=== PATIENT | female | born 1995 | race Caucasian/White ===

== ENCOUNTER 2017-06-29 11:05 | Emergency (ER) | payer OTHER ==
[2017-06-29 11:26] VITALS: BMI 42.2
--- NOTE | 2017-07-13 10:08 | OBPPN ---
Datetime: 07/02/2017 07:14 PP Pain Prov: Within normal limits PP Nausea Prov: Denies PP Flatus Prov: Yes PP Breasts Prov: Normal PP Heart Prov: Normal PP Lungs Prov: Normal PP Abdomen/Uterus Prov: Normal PP Lochia Prov: Normal PP Vulva/Perineum Prov: Normal PP CVA Tenderness Prov: Normal PP Extremities Prov: Normal PP Comments Phys Exam Prov: Abd: Soft, NT, BS- present UT- Firm Incision- clean and dry PP Impression Prov: Normal progression PP Plan Prov: Discharge PP Progress Note Prov: s/p Section, POD #3 Clinically Stable. Plan: Discharge. Vital Signs Provider PP: Reviewed
[2017-07-13 14:07] VITALS: BP 121/75; PULSE 69; RESP 18; TEMP 98.5; O2SAT 99
--- NOTE | 2017-07-15 03:47 | OBADHP ---
Datetime: 06/29/2017 19:44 Presentation-Admit: Vertex FHR - Baseline A Provider: 130 Gestation - Est Wks by US: 40.5 NICHD Variability Prov Fetus A: Moderate 6-25bpm NICHD Accel Fetus A IP Provider: 15X15 FHR Category Provider Fetus A: Category I NICHD Decel Fetus A IP Provider: Early Dilatation, Provider: 5-6 Effacement, Provider: 90 Station, Provider: -2 Datetime: 06/29/2017 14:33 Weight - Estimated: 3200 Vital Signs Provider: Reviewed; Within Normal Limits Datetime: 06/29/2017 11:48 Admit Comment, IP Provider: chief complaint-contractions HPI 22 y/o at 40.5 wga with c/o contractions.Patient denies vaginal bleeding or loss of fluid . course uncomplicated; care with dr kruse PMH denies PSH denies OBGYN H X Social hx denies tobacco,alcohol or illcit drug use Exam see exam section A/P 22 y/p at 40.5 wga in labor.BP elevated.?due to pain. -admit -see orders -[facility] labs -monitor closely dr kruse aware Pelvic Type - PN: Adequate Extremities - PN: Normal Abdomen - PN: Normal Back - PN: Normal Lungs - PN: Normal Heart - PN: Normal Neurologic - PN: Normal General - PN: Normal Contraction Comments Provider: every 2-3min IP Hx Assessment: The History has been Reviewed and is Current IP Chief Complaint: Uterine contractions Genitourinary Exam: Normal DTRs - PN: Normal EGA AdmitDate IP: 40.5 IP Adm Impression: Postterm, intrauterine IP Admit Plan: Admit to unit; Initiate labor protocol
== END 2017-06-30 01:31 | disposition home or self-care (01) ==
LOC: C.EROB 11:05
DX: O47.1 False labor at or after 37 completed weeks of gestation (principal); Z3A.40 40 weeks gestation of pregnancy

== ENCOUNTER 2017-06-29 11:05 | Inpatient (IN) | payer OTHER ==
[2017-06-29 11:26] VITALS: BMI 42.2
--- NOTE | 2017-06-29 11:58 | OBHP ---
Datetime: 06/29/2017 11:48 IP Adm Impression: Postterm, intrauterine IP Admit Plan: Admit to unit; Initiate labor protocol Admit Comment, IP Provider: chief complaint-contractions HPI 22 y/o at 40.5 wga with c/o contractions.Patient denies vaginal bleeding or loss of fluid . course uncomplicated; care with dr kruse PMH denies PSH denies OBGYN H X Social hx denies tobacco,alcohol or illcit drug use Exam see exam section A/P 22 y/p at 40.5 wga in labor.BP elevated.?due to pain. -admit -see orders -pih labs -monitor closely dr kruse aware Pelvic Type - PN: Adequate Extremities - PN: Normal Abdomen - PN: Normal Back - PN: Normal Lungs - PN: Normal Heart - PN: Normal Neurologic - PN: Normal General - PN: Normal Contraction Comments Provider: every 2-3min Gestation - Est Wks by US: 40.5 IP Hx Assessment: The History has been Reviewed and is Current EGA AdmitDate IP: 40.5 Vital Signs Provider: Reviewed IP Chief Complaint: Uterine contractions FHR Category Provider Fetus A: Category I Dilatation, Provider: 3-4 Effacement, Provider: 80 Station, Provider: -2 Genitourinary Exam: Normal DTRs - PN: Normal
[2017-06-29 12:01] LABS: BASO # 0.1 K/uL (0.0-0.2); BASO % 0.6 % (0.0-2.0); EOS # 0.1 K/uL (0.0-0.7); EOS % 1.1 % (0.0-4.0); LYMPH # 1.8 K/uL (1.0-4.3); LYMPH % 19.6 % (20.0-40.0); MEAN CELL VOLUME 71.3 fL (81.0-99.0); MEAN CORPUSCULAR HEMOGLOBIN 22.9 pg (27.0-31.0); MEAN CORPUSCULAR HGB CONC 32.1 g/dL (33.0-37.0); MONO # 0.7 K/uL (0.0-0.8); MONO % 7.8 % (0.0-10.0); NRBC % 0.1 % (0.0-2.0); RED CELL DISTRIBUTION WIDTH 14.2 % (11.5-14.5); WHITE BLOOD COUNT 9.3 K/uL (4.8-10.8)
[2017-06-29 12:09] LABS: RBC URINE 17 /hpf (0-3); URINE BACTERIA OCC (<OCC); URINE BILIRUBIN NEGATIVE (NEGATIVE); URINE BLOOD NEGATIVE (NEGATIVE); URINE COLOR Yellow (YELLOW); URINE GLUCOSE (UA) NORMAL (Normal); URINE KETONE NEGATIVE (NEGATIVE); URINE LEUKOCYTE ESTERASE 3+ Leu/uL (Negative); URINE PROTEIN NEGATIVE (NEGATIVE); URINE UROBILINOGEN NORMAL mg/dL (0.2-1.0); WBC URINE 55 /hpf (0-5)
[2017-06-29 12:21] LABS: CHLORIDE 105 mmol/L (98-107); SODIUM 137 mmol/L (132-148)
[2017-06-29 12:22] LABS: POTASSIUM 3.8 mmol/L (3.6-5.2)
[2017-06-29 12:24] LABS: ALB/GLOB RATIO 0.9 (1.0-2.1); ALKALINE PHOSPHATASE 149 U/L (38-126); ALT/SGPT 19 U/L (9-52); AST/SGOT 17 U/L (14-36); BILIRUBIN,TOTAL 0.4 mg/dL (0.2-1.3); BLOOD UREA NITROGEN 6 mg/dL (7-17); CARBON DIOXIDE 19 mmol/L (22-30); GFR AFRICAN-AMERICAN > 60; GLUCOSE,RANDOM 89 mg/dL (65-105); TOTAL PROTEIN 6.9 g/dL (6.3-8.3); URIC ACID 4.9 mg/dL (2.2-7.5)
[2017-06-29 12:25] LABS: CALCIUM 9.5 mg/dl (8.6-10.4)
[2017-06-29] MEDS ORDERED: Bupivacaine 0.125%/FentaNYL 200 ML EPI ONE (13:55)
--- NOTE | 2017-06-29 14:36 | OBPN ---
Datetime: 06/29/2017 14:33 IP Progress Impression: Normal progression of labor; Reassuring heart rate IP Procedures: Artificial ROM IP Progress Plan: Continue present management Weight - Estimated: 3200 Presentation-Admit: Vertex IP Progress Note Comment: S-patient comfortable with epidural O-VS BP labile FHT cat1 [place] ctx q 2min sve /-1 A/P Patient at 40.5 wga in labor,GBS neg.arom done.clear fluid.Monitor bp closely -anticipate nvd discussed with dr kruse Vital Signs Provider: Reviewed; Within Normal Limits Dilatation, Provider: 5 Effacement, Provider: 90 Station, Provider: -2 Datetime: 06/29/2017 11:48 Contraction Comments Provider: every 2-3min Gestation - Est Wks by US: 40.5 FHR Category Provider Fetus A: Category I
[2017-06-29] MEDS ORDERED: Oxytocin 30 UNIT 30 UNITS/500 ML BAG IV PRN ×2 (16:00→16:45)
[2017-06-29] MEDS ORDERED: Oxytocin 30 UNIT 30 UNITS/500 ML BAG IV ONE (16:38)
[2017-06-29] MEDS ORDERED: Sodium Citrate/Citric Acid 15 ml Sol ONE ×2 (19:19)
[2017-06-29] MEDS ORDERED: cefOXitin IV 2 gm in Dextrose 2 GM/50 ML BAG IVPB ONE ×2 (19:19→19:53)
[2017-06-29] MEDS ORDERED: Lidocaine 2% MPF (5 ml) Inj ONE ×2 (19:20→21:00)
[2017-06-29] MEDS ORDERED: ePHEDrine 50 mg/ml Inj ONE (19:21)
--- NOTE | 2017-06-29 19:52 | OBPN ---
Datetime: 06/29/2017 19:44 IP Progress Impression: Arrest of dilatation/descent; Reactive non-stress test IP Procedures: Sterile Vag Exam IP Progress Plan: Deliver- Section FHR - Baseline A Provider: 130 Gestation - Est Wks by US: 40.5 Presentation-Admit: Vertex IP Progress Note Comment: IUP at term in labor. Arrest of cervical dilatation at 5-6cm Plan: Prepare for Section. The risks, alternatives ,and benefits discussed with the patient. Pt verbalizes understanding. Consent obtained. NICHD Accel Fetus A IP Provider: 15X15 FHR Category Provider Fetus A: Category I NICHD Variability Prov Fetus A: Moderate 6-25bpm Dilatation, Provider: 5-6 Effacement, Provider: 90 Station, Provider: -2 NICHD Decel Fetus A IP Provider: Early
[2017-06-29] MEDS ORDERED: Sodium Citrate/Citric Acid 15 ml Sol PO ONE (19:53)
[2017-06-29] MEDS ORDERED: Morphine 1 mg/ml preservative-free Inj(Duramorph) ONE (20:10)
--- NOTE | 2017-06-29 20:20 | PCM.SURG1 ---
Surgeon's Initial Post Op Note - Surgeon's Notes Surgeon: Dr Nichols Compliance Associate: Dr Lemons Type of Anesthesia: Spinal Anesthesia Administered By: Dr Lopez Pre-Operative Diagnosis: IUP at 40w5d in Active labor,. Arrest of cervical Dilatation Operative Findings: Live female infant with BW of 3195gm, score of 9 and 9 , Fundal placenta, Clear amniotic fluid. Normal uterus tubes and ovaries. IVF intake- 1500mls. EBL- 600mls. Urine output- 300mls Post-Operative Diagnosis: Same as Preop diagnosis Operation Performed: Primary Section Specimen/Specimens Removed: Umbilical cord blood Estimated Blood Loss: EBL {In ML}: 600 Post-Op Condition: Good Date of Surgery/Procedure: 06/29/17 Time of Surgery/Procedure: 21:35
[2017-06-29] MEDS ORDERED: Esmolol 100 mg/10ml Inj IV ONE ×2 (20:57→20:58)
[2017-06-29] MEDS ORDERED: Ketamine 50 mg/ml Inj (10 ml) ONE (21:13)
[2017-06-29] MEDS ORDERED: Midazolam 2 MG/2 ML VIAL ONE (21:13)
[2017-06-29] MEDS ORDERED: DiphenhydrAMINE 50 mg/ml Inj IVP PRN (22:14)
[2017-06-29] MEDS ORDERED: HYDROmorphone 0.5 mg/0.5 ml ISec IVP PRN (22:15)
[2017-06-30] MEDS: cefOXitin IV 2 gm in Dextrose 2 GM/50 ML BAG IVPB SCH ×2 (05:46→13:46)
[2017-06-30 07:39] LABS: BASO # 0.1 K/uL (0.0-0.2); BASO % 0.3 % (0.0-2.0); EOS % 0.1 % (0.0-4.0); HEMATOCRIT 31.4 % (34.0-47.0); LYMPH # 1.7 K/uL (1.0-4.3); LYMPH % 11.5 % (20.0-40.0); MEAN CELL VOLUME 71.1 fL (81.0-99.0); MEAN CORPUSCULAR HEMOGLOBIN 22.6 pg (27.0-31.0); MEAN CORPUSCULAR HGB CONC 31.7 g/dL (33.0-37.0); MEAN PLATELET VOLUME 9.9 fL (7.2-11.7); MONO # 0.7 K/uL (0.0-0.8); MONO % 4.6 % (0.0-10.0); RED CELL DISTRIBUTION WIDTH 14.1 % (11.5-14.5)
[2017-06-30 07:46] LABS: WHITE BLOOD COUNT 14.7 K/uL (4.8-10.8)
[2017-06-30] MEDS: Oxycodone/Acetaminophen 5/325 mg Tab PO PRN ×2 (10:48→22:40)
[2017-06-30] MEDS: Simethicone 80 mg Chewtab PO SCH ×3 (10:52→18:18)
[2017-07-01] MEDS ORDERED: cefOXitin IV 2 gm in Dextrose 2 GM/50 ML BAG IVPB ONE (00:32)
[2017-07-01] MEDS: cefOXitin IV 2 gm in Dextrose 2 GM/50 ML BAG IVPB SCH (00:34)
[2017-07-01] MEDS: Simethicone 80 mg Chewtab PO SCH ×4 (09:26→23:04)
[2017-07-01 16:46] VITALS: O2SAT 99
--- NOTE | 2017-07-01 18:09 | OBDS ---
DELIVERY PERSONNEL Delivery Doctor: Robert Nichols MD Scrub Nurse: Gail Choi OBT Water Ski Assembler: Patricia Aparicio RN Anesthesiologist: Delfino Loepz MD MATERNAL INFORMATION Delivery Anesthesia: Epidural Medications in Delivery: pitocin Estimated Blood Loss (ml): 600 Placenta Cultured: No Maternal Complications: None RN Comments: baby girl born via csection, apgars 9/9 baby stable and remains with mother. attended t o by Dr Quiñones. Provider Comments: Uncomplicated Primary Low Transverse Section with delivery of a viable f emale infant with scores of 9 and 9. LABOR SUMMARY EDC: 06/24/2017 00:00 No. Babies in Womb: 0 Labor Anesthesia: Epidural LABOR INFORMATION Group B Beta Strep: Negative (Annotations: 06/01/17) MEMBRANES Membranes Rupture Method: Artificial Rupture of Membranes: 06/29/2017 14:32 Length of Rupture (hrs): 6.85 Amniotic Fluid Color: Clear Amniotic Fluid Amount: Moderate Amniotic Fluid Odor: Normal STAGES OF LABOR Stage 3 hrs: 0 Stage 3 min: 1 CSECTION DELIVERY Primary Indication: Secondary Arrest of Dilatation CSection Incision: Lower Uterine Transverse Uterine Closure: Double-layer closure BABY A INFORMATION Infant Delivery Date/Time: 06/29/2017 21:23 Method of Delivery: Born in Route : No : N/A Forceps: N/A Vacuum Extraction: N/A Shoulder Dystocia : No SHOULDER DYSTOCIA BABY A Delivery Date/Time: 06/29/2017 21:23 PRESENTATION/POSITION BABY A Presentation: Cephalic Cephalic Presentation: Vertex Breech Presentation: N/A PLACENTA INFORMATION BABY A Placenta Delivery Time : 06/29/2017 21:24 Placenta Method of Delivery: Manual Removal Placenta Status: Delivered SCORES BABY A Heart Rate 1 min: >100 bpm Resp Effort 1 min: Good Cry Reflex Irritability 1 min: Cough or Sneeze or Pulls Away Muscle Tone 1 min: Active Motion Color 1 min: Body [place], Extremities Blue Resuscitation Effort 1 min: N/A SCORE 1 MIN: 9 Heart Rate 5 min: >100 bpm Resp Effort 5 min: Good Cry Reflex Irritability 5 min: Cough or Sneeze or Pulls Away Muscle Tone 5 min: Active Motion Color 5 min: Body [place], Extremities Blue Resuscitation Effort 5 min: N/A SCORE 5 MIN: 9 INFANT INFORMATION BABY A Gestational Age at Delivery: 40.5 Gestational Status: Term Outcome : Liveborn Condition : Stable Sex: Female IDENTIFICATION/MEDS BABY A ID Band Number: [id number] ID Band Location: Left Leg; Left Arm Sensor Applied: Yes Sensor Number: [id number] Sensor Location : Cord Clamp Vitamin K Given : Not Given Erythromycin Given: Not Given WEIGHT/LENGTH BABY A Infant Birthweight (gms): 3195 Infant Weight (lb): 7 Infant Weight (oz): 1 Length Inches: 19.50 Infant Length cms: 49.5 CORD INFORMATION BABY A No. Cord Vessels: 3 Nuchal Cord : N/A Nuchal Cord Other: 0 True Knot: 0 Cord Blood Taken: Yes Suction: Mouth; Nose ASSESSMENT BABY A Infant Complications: Multiple Variable Decels Physical Findings at Delivery: [place] Respirations: Appears Normal Sheet Metal Assembler And Riveter/ALS Called : Yes Infant Care By: Dr Quiñones Transferred To: Remains with Mother
--- NOTE | 2017-07-01 18:16 | OBPPN ---
Datetime: 07/01/2017 18:15 PP Pain Prov: Within normal limits PP Nausea Prov: Denies PP Flatus Prov: Yes PP Breasts Prov: Normal PP Heart Prov: Normal PP Lungs Prov: Normal PP Abdomen/Uterus Prov: Normal PP Lochia Prov: Normal PP Vulva/Perineum Prov: Normal PP CVA Tenderness Prov: Normal PP Extremities Prov: Normal Datetime: 06/30/2017 18:12 PP Impression Prov: Normal progression PP Plan Prov: Continue present management PP Progress Note Prov: S/P Primary Section, POD #1 Clinically Stable Plan: Continue care. Vital Signs Provider PP: Reviewed
--- NOTE | 2017-07-01 18:19 | OBPPN ---
Datetime: 07/01/2017 18:15 PP Comments Phys Exam Prov: Abd: Soft, NT, BS - present UT- Firm Incision: Clean and dry PP Impression Prov: Normal progression PP Plan Prov: Continue present management PP Progress Note Prov: S/p Section, Clinically Stable Plan: Continue post care.
--- NOTE | 2017-07-02 03:20 | OP ---
PROCEDURE DATE: 06/29/2017 PREOPERATIVE DIAGNOSIS: Intrauterine at term in active labor with arrest of cervical dilatation. POSTOPERATIVE DIAGNOSIS: Arrest of cervical dilatation secondary to occipitoposterior positioning of head. PROCEDURE DONE: Primary low transverse section performed on 06/29/2017. SURGEON: Flex Nichols MD MANUFACTURING DEVELOPMENT ENGINEER: Dr. Lemons. Assistance to this procedure was needed for exposure of tissues and help in the delivery of the baby. The assistance remained with the procedure throughout its entire length. TYPE OF ANESTHESIA: Spinal. ANESTHESIA ADMINISTERED BY: Dr. Lopez. OPERATIVE FINDINGS: Live female with weight of 3195 g, scores of 9 in the first and fifth minutes respectively with a fundal placenta and clear amniotic fluid. The baby was delivered in the left occipitoposterior position. Uterus as well as the fallopian tubes and ovaries appeared normal. IV FLUID INTAKE: 1500 mL. ESTIMATED BLOOD LOSS: 600 mL. URINE OUTPUT: About 300 mL of clear urine. COMPLICATIONS: There were no complications. DESCRIPTION OF PROCEDURE: After obtaining the informed consent, the patient was sent to the OR with IV running and Boland catheter in place. The patient was put in a supine position on the OR table and the epidural with spinal, which was already in place was topped up to achieve good anesthesia. The patient was prepped and draped in sterile fashion. A Pfannenstiel skin incision was made about 2.5-cm from the pubic symphysis using a scalpel and this incision was carried sharply through the subcutaneous tissues until the rectus fascia was identified. Using a Bovie device, a transverse incision was made in rectus fascia and this was extended to both side in a blunt fashion. The rectus fascia was lifted off the underlying rectus muscle both superiorly and inferiorly by means of sharp dissection with Kee scissors and blunt dissection. The rectus muscles were in the midline to expose the peritoneum, which was tented between 2 Tatiana clamps and sharply entered with Metzenbaum scissors and with good visualization of the bladder. Once abdominal cavity was entered, the vesicouterine fold of peritoneum was identified, incised in transverse fashion using a Metzenbaum scissors and retracted inferiorly to expose the lower uterine segment. The transverse low incision was made using a scalpel. This incision was sent through the myometrial layer, so the amniotic membranes were seen. The incision was extended to both sides in a blunt fashion. The amniotic membranes were ruptured with pickup forceps and the baby which was located in left occipitoposterior position was identified. Baby was delivered. Mouth and nostrils were bulb suctioned and three-vessel cords was clamped and cut and the patient was given to nurse. Umbilical cord blood was obtained for analysis and the placenta was removed from the uterine cavity. The uterus was then brought out of the abdominal cavity and uterine incision was repaired in 2 layers using Vicryl #0. The first layer in a running locked fashion and the second layer in a running fashion and imbricating the first layer. This was conducted until hemostasis was noted. Irrigation of both the anterior and posterior surfaces of the uterus was done using normal saline. Once hemostasis has been noted, the uterus was sent back into the abdominal cavity and attention was turned to the anterior abdominal wall, which was closed in layers with 2-0 Vicryl for the peritoneum and the rectus muscle. The rectus fascia was reapproximated using #0 Vicryl. The subcutaneous tissues were brought together with #2-0 plain catgut. The skin was closed in a subcuticular fashion using #4-0 Biosyn. All counts of the instrument, laparotomy pads, and needles used were correct x3 and the patient was sent to the recovery room awake and in stable condition. Flex Nichols MD IAN
[2017-07-02 08:27] VITALS: BP 121/75; PULSE 69
[2017-07-02] MEDS: Simethicone 80 mg Chewtab PO SCH (09:46)
[2017-07-02 18:15] VITALS: RESP 18; TEMP 98.5
== END 2017-07-02 14:13 | disposition home or self-care (01) | DRG 766 ==
LOC: C.EROB 11:05 → C.4D 11:27 → C.4M 06-30 01:00
PROVIDERS: ADMIT Obstetrics & Gynecology; ATTEND Obstetrics & Gynecology
PROC: 10D00Z1 Extraction of Products of Conception, Low, Open Approach (ICD-10-PCS; principal; 2017-06-29)
DX: O76 Abnormality in fetal heart rate and rhythm complicating labor and delivery (principal); O64.0XX0 Obstructed labor due to incomplete rotation of fetal head, not applicable or unspecified; O48.0 Post-term pregnancy; O62.0 Primary inadequate contractions; Z3A.40 40 weeks gestation of pregnancy; Z37.0 Single live birth; O26.893 Other specified pregnancy related conditions, third trimester; R03.0 Elevated blood-pressure reading, without diagnosis of hypertension